=== PATIENT | female | born 1990 | race Two or more races ===

== ENCOUNTER 2017-03-22 08:50 | Emergency (ER) | payer SELFPAY ==
[2017-03-22 09:00] VITALS: BP 159/98
[2017-03-22] MEDS ORDERED: AZIT250T PO (09:28)
[2017-03-22] MEDS ORDERED: DOXY100C2 PO (09:28)
--- NOTE | 2017-03-22 09:29 | PHYS DOC ---
Adult General Chief Complaint Chief Complaint: COUGH HPI HPI Patient is a 27-year-old female in good general health who presents with a three -week history of illness, starting with upper respiratory infection, head congestion, now has developed chest congestion and a nonproductive cough. She feels somewhat short of air especially when she is working. She has muscle aches and pains in her upper back. She denies fever or chills. She is not diabetic. She has no history of asthma or COPD. She has tried naproxen with some relief. She has tried Mucinex with no relief. She is frustrated that she continues to have symptoms and she seems to be getting worse after 3 weeks of illness. Review of Systems Review of Systems Constitutional: Denies fever or chills [] HENT: As in history of present illness Respiratory: As in history of present illness : Denies Musculoskeletal: She has generalized muscular aches and pains Integument: She has some questions about facial acne Physical Exam Physical Exam Constitutional: Well developed, well nourished, no acute distress, non-toxic appearance. Alert, mentating normally, warm and dry, vital signs stable. HENT: Normocephalic, atraumatic, bilateral external ears normal, oropharynx moist, no oral exudates, nose normal. [] Eyes: conjunctiva normal, no discharge. [] Neck: Normal range of motion, no stridor. [] Cardiovascular:Heart rate regular rhythm, no murmur [] Lungs & Thorax: Bilateral breath sounds clear to auscultation with good air movement bilaterally and without wheezes. Skin: Warm, dry, no erythema, she has facial cystic acne Extremities: No tenderness, no cyanosis, no clubbing, ROM intact, no edema. [] Neurologic: Alert and oriented X 3, normal motor function, no focal deficits noted. [] EKG EKG [] Radiology/Procedures Radiology/Procedures [] Course & Med Decision Making Course & Med Decision Making Pertinent Labs and Imaging studies reviewed. (See chart for details) 27-year-old female presents with 3 weeks of illness, a cough and chest congestion that she can't shake. She is not a smoker and has no lung disease. I discussed treating her with an antibiotic. She has questions about acne on her face. We discussed that I could prescribe doxycycline for her but it won't help any longer than while she is taking the antibiotic. She elected to give it a try anyway. I also wrote for a Z-Bhavesh in case the doxycycline is too expensive, she can fill either or. [] Yovana Disclaimer Yovana Disclaimer This chart was dictated in whole or in part using Voice Recognition software in a busy, high-work load, and often noisy Emergency Department environment. It may contain unintended and wholly unrecognized errors or omissions. Departure Departure: Impression: Primary Impression: Bronchitis Additional Impression: Viral syndrome Disposition: HOME, SELF-CARE Condition: STABLE Referrals: PCP,NO (PCP) Patient Instructions: Bronchitis, [id number] Additional Instructions: Drink plenty of fluids. Get plenty of rest. If not improving in 5-7 days, see your doctor. As we discussed, I prescribed doxycycline, since this has worked before for your acne. Sometimes it's very expensive. If it's too expensive, I also prescribed Zithromax that you can fill instead. Scripts Azithromycin (ZITHROMAX) 250 Mg Tablet 1 PKG PO UD for bronchitis, #6 TAB Prov: RIVAS PHILLIP MD 03/22/17 Doxycycline Hyclate (DOXYCYCLINE HYCLATE) 100 Mg Capsule 1 CAP PO BID for bronchitis, #20 CAP Prov: RIVAS PHILLIP MD 03/22/17 Problem Qualifiers RIVAS PHILLIP MD Mar 22, 2017 09:29
== END 2017-03-22 09:35 | disposition home or self-care (01) ==
LOC: ER 08:50
DX: B34.9 Viral infection, unspecified (principal); J40 Bronchitis, not specified as acute or chronic
CPT/HCPCS: 99283

== ENCOUNTER 2017-05-16 17:26 | Emergency (ER) | payer OTHER ==
[~2017-05-16 17:26] MED LIST: AZIT250T PO; DOXY100C2 PO
[2017-05-16 17:34] VITALS: BP 140/62
[2017-05-16] MEDS ORDERED: ALPR0.25 PO (18:16)
--- NOTE | 2017-05-16 18:21 | PHYS DOC ---
General Chief Complaint: ANXIETY/PANIC ATTACK Stated Complaint: ANXIETY Time Seen by MD: 18:14 Source: patient Exam Limitations: no limitations Problems: History of Present Illness Initial Comments Patient is a 27-year-old female complaining of altered mood. 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 She states that she's had "explosive behavior" and last week and did entertain some negative thoughts however currently states that she denies any suicidal ideation. At times she says she gets very nervous and feels like her heart is racing starting to feel as if things are hopeless. She has an appointment scheduled with the [facility] for the of this month however decided she should come in [facility] to see if she could get some earlier relief. In the emergency department she is currently calm denies any current distress but is afraid once she gets home with her thoughts the symptoms will return. She denies any history of substance abuse hasn't tried any medications for mood in the past she is originally from [place]. Her vital signs are stable she doesn't take any daily medications. Timing/Duration: other Severity: severe Modifying Factors: improves with other Associated Symptoms: chest pain, shortness of breath, other Allergies: Coded Allergies: sulfamethoxazole (Verified Allergy, Unknown, gastritis, 03/22/17) trimethoprim (Verified Allergy, Unknown, gastritis, 03/22/17) Past Medical History Medical History: no pertinent history Surgical History: noncontributory Psychosocial History: anxiety Social History Smoker: non-smoker Alcohol: none Drugs: none Review of Systems Constitutional: denies chills, denies fever, denies malaise Respiratory: see HPI, denies cough, denies wheezing Cardiovascular: see HPI, denies syncope Gastrointestinal: denies diarrhea, denies nausea, denies vomiting Musculoskeletal: denies back pain, denies joint pain, denies neck pain Psychiatric/Neurological: see HPI Physical Exam General Appearance: WD/WN, no apparent distress Ear, Nose, Throat: hearing grossly normal, normal ENT inspection Neck: non-tender, supple Respiratory: normal breath sounds, no respiratory distress Cardiovascular: normal peripheral pulses, regular rate, rhythm Back: no CVA tenderness, no vertebral tenderness Extremities: non-tender, normal inspection 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 I discussed stress management techniques including counseling and exercise, I discussed prescription and [id number] medications. After thorough discussion of the addiction potential and sedation associated with alprazolam the patient would like to try it in the short-term until she can get in with the guidance center. Signs and symptoms to monitor as well as urgent indication to return to the department were discussed, the patient does agree to return if her thoughts turned dark or negative again. Her questions were answered to her satisfaction and she expressed agreement and understanding with treatment plan. As pharmacies are closed a hydroxyzine start pack was dispensed 4 symptoms overnight should they arise. Departure Time of Disposition: 18:18 Disposition: 01 HOME, SELF-CARE Diagnosis: adjustment disorder, anxiety Condition: GOOD Patient Instructions: Adjustment Disorder, Anxiety and Panic Attacks, Easy-to- Read Additional Instructions: Please review the patient education materials given by ED staff. In addition to planning to follow-up at the guidance [facility], ED staff can provide you the guidance Center's walk-in appointment hours. Try to follow-up with them for a walk-in appointment sooner than the 18 of this month. Return to the emergency department if you develop any negative thoughts as discussed. Prescription: Alprazolam 0.25 mg quantity 10 take as directed No driving or operating machinery while under the influence of this medication. Return to ED with new or changing symptoms. MOOSE GAMA DO May 16, 2017 18:20
[2017-05-16] MEDS ORDERED: STARTER PACK-hydrOXYzine 1 STARTPACK TABLET PO ONE (19:00)
== END 2017-05-16 18:37 | disposition home or self-care (01) ==
LOC: ER 17:26
DX: F43.20 Adjustment disorder, unspecified (principal); F41.9 Anxiety disorder, unspecified; Z88.1 Allergy status to other antibiotic agents
CPT/HCPCS: 99284

== ENCOUNTER 2017-05-28 21:02 | Emergency (ER) | payer OTHER ==
[~2017-05-28] VITALS: Ht 167.6 cm; Wt 72.6 kg
[~2017-05-28 21:02] MED LIST changes: +ALPR0.25 PO
[2017-05-28 21:15] VITALS: BP 147/84
[2017-05-28] MEDS ORDERED: IV NORMAL SALINE 1,000ML 1,000 ML IV SCH (21:17)
--- NOTE | 2017-05-28 21:43 | PHYS DOC ---
General Chief Complaint: FLU SYMPTOM Stated Complaint: VOMITING,DIARRHEA,FEVER X 2DAYS Time Seen by MD: 21:03 Source: patient Exam Limitations: no limitations Problems: History of Present Illness Initial Comments Patient is a 27-year-old female who comes to the ED complaining of vomiting or diarrhea. Patient states that she was diagnosed with strep throat last week and has been taking amoxicillin. Last night she developed abdominal cramping and has had multiple episodes of nonbloody emesis and loose watery stools. Her abdominal cramping is primarily epigastric, she denies any true focal abdominal pain complaints. Her appetite is intact however she is unable to keep anything down today. She's had myalgias, chills and sweats no measured fevers and is uncertain of any sick contacts with similar symptoms. No pre-arrival treatment patient is normally healthy. Timing/Duration: 24 hours Severity: severe Modifying Factors: worse with eating, worse with movement, improves with rest Associated Symptoms: diaphoresis, fever/chills, malaise, nausea/vomiting, other Allergies: Coded Allergies: sulfamethoxazole (Verified Allergy, Unknown, gastritis, 03/22/17) trimethoprim (Verified Allergy, Unknown, gastritis, 03/22/17) Past Medical History Medical History: no pertinent history Surgical History: noncontributory Social History Smoker: non-smoker Alcohol: none Drugs: none Review of Systems Constitutional: see HPI Respiratory: denies cough, denies shortness of breath, denies wheezing Cardiovascular: denies chest pain, denies palpitations, denies syncope Gastrointestinal: see HPI Genitourinary: denies dysuria, denies frequency, denies hematuria Musculoskeletal: see HPI, denies back pain, denies joint swelling, denies neck pain Hematologic/Lymphatic: denies blood clots, denies easy bleeding, denies easy bruising Physical Exam General Appearance: mild distress (nauseous no active retching or vomiting.) Eyes: bilateral eye normal inspection, bilateral eye PERRL, bilateral eye EOMI Ear, Nose, Throat: hearing grossly normal, normal ENT inspection, normal pharynx (dry mucous membranes) Neck: non-tender, supple Respiratory: normal breath sounds, no respiratory distress Cardiovascular: normal peripheral pulses, regular rate, rhythm Gastrointestinal: soft (nondistended, generalized abdominal muscle tenderness negative Whitlock negative McBurney, bowel sounds normal no palpable masses) Rectal: deferred Back: no CVA tenderness, no vertebral tenderness Extremities: non-tender, normal inspection 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 Labs reassuring, urinalysis with squamous epithelial contamination will await culture 2221: Patient rechecked, she is feeling much better her nausea has resolved and her color has improved. She no longer has a headache and feels more alert. She still has approximately 400 mL of fluids left run in, she wants to stay and finish her IV fluids. I discussed her departure instructions including oral hydration, diet modification, work excuse for tomorrow, prescription and over- the-counter medications. I advised her to continue taking her amoxicillin so her strep throat infection would be fully treated. Her questions were answered to her satisfaction and she expressed agreement and understanding with the treatment plan. Departure Time of Disposition: 22:22 Disposition: 01 HOME, SELF-CARE Diagnosis: gastroenteritis likely viral, pre-existing strep t Condition: IMPROVED Patient Instructions: Viral Gastroenteritis, Ungu-ex-Ekew Additional Instructions: Please review the patient education materials given by ED staff. Off work tomorrow, note given. Clear liquids tonight, advance diet slowly tomorrow as tolerated. Aggressive hydration with Gatorade and water. Continue amoxicillin, take with food. [id number] Tylenol and ibuprofen as needed. Prescription: Zofran ODT, dicyclomine Follow-up with your doctor in 3-5 days if not better. Return to the ED with new or changing symptoms. MOOSE GAMA DO May 28, 2017 21:43
[2017-05-28] MEDS ORDERED: FAMOTIDINE 20 MG/2 ML VIAL IVP ONE (21:45)
[2017-05-28] MEDS ORDERED: ONDANSETRON PF 4 MG/2 ML VIAL. IV ONE (21:45)
[2017-05-28 21:54] LABS: BASO % 0 % (0-3); EOS % 0 % (0-3); HEMATOCRIT 37.5 % (36.0-47.0); HEMOGLOBIN 12.8 g/dL (12.0-15.5); LYMPH # 0.8 x10^3/uL (1.0-4.8); LYMPH % 17 % (24-48); MEAN CORPUSCULAR HEMOGLOBIN 30 pg (25-35); MEAN CORPUSCULAR HGB CONC 34 g/dL (31-37); MEAN CORPUSCULAR VOLUME 88 fL (79-100); MONO # 0.5 x10^3/uL (0.0-1.1); MONO % 10 % (0-9); NEUT # 3.5 x10^3uL (1.8-7.7); NEUT % 72 % (31-73); PLATELET COUNT 298 x10^3/uL (140-400); RED BLOOD COUNT 4.28 x10^6/uL (3.50-5.40); RED CELL DISTRIBUTION WIDTH 13.1 % (11.5-14.5); WHITE BLOOD COUNT 4.8 x10^3/uL (4.0-11.0)
[2017-05-28 22:06] LABS: ALBUMIN 3.9 g/dL (3.4-5.0); ALBUMIN/GLOBULIN RATIO 1.1 (1.0-1.7); CALCIUM 8.9 mg/dL (8.5-10.1); CREATININE 0.7 mg/dL (0.6-1.0); GFR 101.1; POTASSIUM 3.6 mmol/L (3.5-5.1); TOTAL BILIRUBIN 0.6 mg/dL (0.2-1.0); TOTAL PROTEIN 7.6 g/dL (6.4-8.2)
[2017-05-28 22:17] LABS: BILIRUBIN,URINE NEG (NEG); CLARITY,URINE HAZY; COLOR,URINE STRAW; GLUCOSE,URINE NEG (NEG); NITRITE,URINE NEG (NEG); UROBILINOGEN,URINE 0.2 mg/dL (0.2 mg/dL)
[2017-05-28 22:18] LABS: BACTERIA,URINE 0 /HPF (0-FEW); RBC,URINE OCC /HPF (0-2); SQUAMOUS EPITHELIAL CELL,UR MANY /LPF
[2017-05-28] MEDS ORDERED: ONDA4TAB10 PO (22:25)
[2017-05-28] MEDS ORDERED: DICY20TA3 PO (22:25)
[2017-05-28] MEDS ORDERED: ONDANSETRON 4MG ODT 4TABLET STARTPACK. PO ONE (22:30)
== END 2017-05-28 22:55 | disposition home or self-care (01) ==
LOC: ER 21:02
DX: K52.9 Noninfective gastroenteritis and colitis, unspecified (principal); J02.0 Streptococcal pharyngitis; Z88.1 Allergy status to other antibiotic agents
CPT/HCPCS: 36415; 80053; 81001; 81025; 83690; 85025; 87086; 96361; 96374; 96375; 99284; J2405; Q0162; S0028; J7030

== ENCOUNTER 2017-08-12 13:10 | Emergency (ER) | payer OTHER ==
[~2017-08-12] VITALS: Ht 167.6 cm; Wt 72.6 kg
[~2017-08-12 13:10] MED LIST changes: +DICY20TA3 PO; +ONDA4TAB10 PO
[2017-08-12] MEDS ORDERED: IV NORMAL SALINE 1,000ML 1,000 ML IV SCH (13:42)
[2017-08-12 14:04] LABS: BASO % 0 % (0-3); EOS # 0.1 x10^3/uL (0.0-0.7); EOS % 1 % (0-3); HEMATOCRIT 37.7 % (36.0-47.0); HEMOGLOBIN 12.9 g/dL (12.0-15.5); LYMPH # 0.6 x10^3/uL (1.0-4.8); LYMPH % 9 % (24-48); MEAN CORPUSCULAR HEMOGLOBIN 30 pg (25-35); MEAN CORPUSCULAR HGB CONC 34 g/dL (31-37); MEAN CORPUSCULAR VOLUME 87 fL (79-100); MONO # 0.3 x10^3/uL (0.0-1.1); MONO % 5 % (0-9); NEUT # 4.9 x10^3uL (1.8-7.7); NEUT % 84 % (31-73); PLATELET COUNT 290 x10^3/uL (140-400); RED BLOOD COUNT 4.32 x10^6/uL (3.50-5.40); RED CELL DISTRIBUTION WIDTH 14.1 % (11.5-14.5); WHITE BLOOD COUNT 5.9 x10^3/uL (4.0-11.0)
[2017-08-12 14:19] LABS: ALBUMIN 3.8 g/dL (3.4-5.0); CALCIUM 8.6 mg/dL (8.5-10.1); CREATININE 0.6 mg/dL (0.6-1.0); GFR 120.8; POTASSIUM 3.9 mmol/L (3.5-5.1); TOTAL BILIRUBIN 0.5 mg/dL (0.2-1.0); TOTAL PROTEIN 7.7 g/dL (6.4-8.2)
[2017-08-12 14:33] VITALS: BP 144/83
[2017-08-12] MEDS ORDERED: ONDA4TAB12 PO (14:41)
--- NOTE | 2017-08-12 14:41 | PHYS DOC ---
Past History Past Medical History: No Pertinent History Past Surgical History: No Surgical History Alcohol Use: None Drug Use: None Adult General Chief Complaint Chief Complaint: FLU SYMPTOM HPI HPI Patient is a 27-year-old female who presents with the complaint today of nausea , diarrhea, feverish feeling, pain in the joints. Patient states that last week she had a cold in her nose. She was congested. She went to her doctor and tests were negative for influenza and strep. They prescribed a decongestant for her. She was getting better from those symptoms. Still has a little bit when 2 days ago she developed her current complaints of body aches, feverish, she has had some nausea and then today had diarrhea. 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 The patient has a 5-year-old son at home who has also had diarrhea. Patient is in good general health. She denies .\ Patient has had an appendectomy Review of Systems Review of Systems Constitutional: She has felt feverish and has had generalized body aches HENT: She had nasal congestion last week GI: She has had generalized abdominal aching and nausea and one episode of diarrhea. : Denies Current Medications Current Medications Current Medications Medications (Trade) Dose Ordered Sig/Rossana Start Time Stop Time Status Last Admin Dose Admin Sodium Chloride 1,000 ml @ 1,000 mls/hr Q1H 08/12/17 13:42 08/12/17 14:41 08/12/17 13:42 1,000 MLS/HR Allergies Allergies Allergies Coded Allergies Type Severity Reaction Last Updated Verified sulfamethoxazole Allergy Unknown gastritis 03/22/17 Yes trimethoprim Allergy Unknown gastritis 03/22/17 Yes Physical Exam Physical Exam Constitutional: Well developed, well nourished, no acute distress, non-toxic appearance. Alert, warm and dry, mentating normally. Mildly tachycardic at about 102. HENT: Normocephalic, atraumatic, bilateral external ears normal, nose normal. [ ] Eyes: conjunctiva normal, no discharge. [] Neck: Normal range of motion, no stridor. [] Cardiovascular:Heart rate regular rhythm, no murmur [] Lungs & Thorax: Bilateral breath sounds clear to auscultation [] Abdomen: Bowel sounds normal, soft, mild generalized tenderness, no localized tenderness, no rebound or guarding, no masses, no pulsatile masses. [] Skin: Warm, dry, no erythema, no rash. [] Extremities: No tenderness, no cyanosis, no clubbing, ROM intact, no edema. [] Neurologic: Alert and oriented X 3, normal motor function, no focal deficits noted. [] Current Patient Data Vital Signs Vital Signs Date Time Temp Pulse Resp B/P (MAP) Pulse Ox O2 Delivery O2 Flow Rate FiO2 08/12/17 14:33 109 18 144/83 (103) 100 Room Air 08/12/17 13:27 98.3 Lab Results Laboratory Tests Test 08/12/17 13:51 08/12/17 13:54 White Blood Count 5.9 x10^3/uL (4.0-11.0) Red Blood Count 4.32 x10^6/uL (3.50-5.40) Hemoglobin 12.9 g/dL (12.0-15.5) Hematocrit 37.7 % (36.0-47.0) Mean Corpuscular Volume 87 fL (79-100) Mean Corpuscular Hemoglobin 30 pg (25-35) Mean Corpuscular Hemoglobin Concent 34 g/dL (31-37) Red Cell Distribution Width 14.1 % (11.5-14.5) Platelet Count 290 x10^3/uL (140-400) Neutrophils (%) (Auto) 84 % (31-73) H Lymphocytes (%) (Auto) 9 % (24-48) L Monocytes (%) (Auto) 5 % (0-9) Eosinophils (%) (Auto) 1 % (0-3) Basophils (%) (Auto) 0 % (0-3) Neutrophils # (Auto) 4.9 x10^3uL (1.8-7.7) Lymphocytes # (Auto) 0.6 x10^3/uL (1.0-4.8) L Monocytes # (Auto) 0.3 x10^3/uL (0.0-1.1) Eosinophils # (Auto) 0.1 x10^3/uL (0.0-0.7) Basophils # (Auto) 0.0 x10^3/uL (0.0-0.2) Sodium Level 136 mmol/L (136-145) Potassium Level 3.9 mmol/L (3.5-5.1) Chloride Level 100 mmol/L (98-107) Carbon Dioxide Level 27 mmol/L (21-32) Anion Gap 9 (6-14) Blood Urea Nitrogen 8 mg/dL (7-20) Creatinine 0.6 mg/dL (0.6-1.0) Estimated GFR (Cockcroft-Gault) 120.8 BUN/Creatinine Ratio 13 (6-20) Glucose Level 89 mg/dL (70-99) Calcium Level 8.6 mg/dL (8.5-10.1) Total Bilirubin 0.5 mg/dL (0.2-1.0) Aspartate Amino Transferase (AST) 23 U/L (15-37) Alanine Aminotransferase (ALT) 32 U/L (14-59) Alkaline Phosphatase 82 U/L (46-116) Total Protein 7.7 g/dL (6.4-8.2) Albumin 3.8 g/dL (3.4-5.0) Albumin/Globulin Ratio 1.0 (1.0-1.7) EKG EKG [] Radiology/Procedures Radiology/Procedures [] Course & Med Decision Making Course & Med Decision Making Pertinent Labs and Imaging studies reviewed. (See chart for details) 27-year-old female presents with about a week of the viral syndrome, today has some nausea, diarrhea, generalized joint aches and feverish. She may have the same viral syndrome or a different viral syndrome. A bit tachycardic. I offered her to go home and rest and drink fluids are to have a liter of fluids here and she chose to have a liter here. She was given a liter of fluids, labs are normal , the patient is stable for discharge. See instructions for plan. [] Dragon Disclaimer Dragon Disclaimer This electronic medical record was generated, in whole or in part, using a voice recognition dictation system. Departure Departure: Impression: Primary Impression: Diarrhea Additional Impression: Viral syndrome Disposition: 01 HOME, SELF-CARE Condition: IMPROVED Referrals: ALEXANDRU REAGAN PA-C (PCP) Patient Instructions: Diarrhea, Rzew-im-[id number], Nausea and Vomiting, Wuis-fi-[id number] Additional Instructions: Stay home and rest until you feel better. Don't go to work while you feel feverish or have nausea or diarrhea. Good hand washing with soap and water, you are probably contagious. Scripts Ondansetron (ONDANSETRON ODT) 4 Mg Tab.rapdis 1 TAB PO PRN Q6-8HRS for NAUSEA, #10 TAB Prov: RIVAS PHILLIP MD 08/12/17 Problem Qualifiers RIVAS PHILLIP MD Aug 12, 2017 14:41
== END 2017-08-12 14:54 | disposition home or self-care (01) ==
LOC: ER 13:10
DX: B34.9 Viral infection, unspecified (principal); R19.7 Diarrhea, unspecified; Z88.2 Allergy status to sulfonamides; Z88.1 Allergy status to other antibiotic agents
CPT/HCPCS: 36415; 80053; 85025; 96360; 99284-25; J7030

== ENCOUNTER → 2017-08-18 | Outpatient (CLI) | payer OTHER ==
[2017-08-12 14:33] VITALS: BP 144/83
[~2017-08-18] MED LIST changes: +ONDA4TAB12 PO
[2017-08-18 18:13] LABS: BASO % 1 % (0-3); EOS # 0.2 x10^3/uL (0.0-0.7); EOS % 3 % (0-3); HEMATOCRIT 40.4 % (36.0-47.0); HEMOGLOBIN 13.5 g/dL (12.0-15.5); LYMPH # 2.4 x10^3/uL (1.0-4.8); LYMPH % 27 % (24-48); MEAN CORPUSCULAR HEMOGLOBIN 29 pg (25-35); MEAN CORPUSCULAR HGB CONC 33 g/dL (31-37); MEAN CORPUSCULAR VOLUME 88 fL (79-100); MONO # 0.5 x10^3/uL (0.0-1.1); MONO % 6 % (0-9); NEUT # 5.8 x10^3uL (1.8-7.7); NEUT % 64 % (31-73); PLATELET COUNT 362 x10^3/uL (140-400); RED CELL DISTRIBUTION WIDTH 13.9 % (11.5-14.5)
[2017-08-18 18:22] LABS: ALBUMIN 4.4 g/dL (3.4-5.0); ALBUMIN/GLOBULIN RATIO 0.9 (1.0-1.7); CALCIUM 9.6 mg/dL (8.5-10.1); CREATININE 0.7 mg/dL (0.6-1.0); GFR 101.1; POTASSIUM 3.7 mmol/L (3.5-5.1); TOTAL BILIRUBIN 0.2 mg/dL (0.2-1.0); TOTAL PROTEIN 9.1 g/dL (6.4-8.2)
[2017-08-19 19:11] LABS: ESTRADIOL LEVEL 129.7 pg/mL (.); PROGESTERONE 8.8 ng/mL (.); TESTOSTERONE TOTAL 20 ng/dL (8-48)
[2017-08-20 06:12] LABS: HEMOGLOBIN A1C 4.8 % (4.8-5.6)
== END | disposition home or self-care (01) ==
LOC: LAB 17:23
PROVIDERS: ATTEND General Practice
DX: E34.9 Endocrine disorder, unspecified (principal); R63.5 Abnormal weight gain; R63.1 Polydipsia
CPT/HCPCS: 36415; 80053; 82306; 82670; 82679; 83036; 84144; 84403; 85025

== ENCOUNTER 2017-12-03 13:47 | Emergency (ER) | payer OTHER ==
[~2017-12-03] VITALS: Ht 160 cm; Wt 72.6 kg
[2017-12-03 14:06] VITALS: BP 160/62
--- NOTE | 2017-12-03 14:35 | PHYS DOC ---
Past History Past Medical History: Other Past Surgical History: No Surgical History Alcohol Use: None Drug Use: None Adult General Chief Complaint Chief Complaint: CHEMICAL EXPOSURE HPI HPI 27-year-old female presents with left eye chemical exposure. 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 She was exposed to a splash of "[employer]" diluted in hot water. She tells me the chemical is an abrasive used to clean metal containers. The exposure was an accidental splash. She immediately irrigated the left eye. She does not wear contacts. She had erythema and irritation of the eye so they sent her to the ED. She denies any other chemical exposures or complaints. Review of Systems Review of Systems Constitutional: Denies fever or chills [] Eyes: Left eye and periorbital skin irritation from chemical exposure[] HENT: Denies nasal congestion or sore throat [] Respiratory: Denies cough or shortness of breath [] Cardiovascular: No additional information not addressed in HPI [] GI: Denies abdominal pain, nausea, vomiting, bloody stools or diarrhea [] : Denies dysuria or hematuria [] Musculoskeletal: Denies back pain or joint pain [] Integument: Denies rash or skin lesions [] Neurologic: Denies headache, focal weakness or sensory changes [] Endocrine: Denies polyuria or polydipsia [] All other systems were reviewed and found to be within normal limits, except as documented in this note. Allergies Allergies Allergies Coded Allergies Type Severity Reaction Last Updated Verified sulfamethoxazole Allergy Unknown gastritis 03/22/17 Yes trimethoprim Allergy Unknown gastritis 03/22/17 Yes Physical Exam Physical Exam Constitutional: Well developed, well nourished, no acute distress, non-toxic appearance. [] HENT: Normocephalic, atraumatic, bilateral external ears normal, oropharynx moist, no oral exudates, nose normal. [] Eyes: PERRLA, EOMI, conjunctiva normal, no discharge. No surrounding erythema at this time. [] Neck: Normal range of motion, no tenderness, supple, no stridor. [] Cardiovascular:Heart rate regular rhythm, no murmur [] Lungs & Thorax: Bilateral breath sounds clear to auscultation [] Abdomen: Bowel sounds normal, soft, no tenderness, no masses, no pulsatile masses. [] Skin: Warm, dry, no erythema, no rash. [] Back: No tenderness, no CVA tenderness. [] Extremities: No tenderness, no cyanosis, no clubbing, ROM intact, no edema. [] Neurologic: Alert and oriented X 3, normal motor function, normal sensory function, no focal deficits noted. [] Psychologic: Affect normal, judgement normal, mood normal. [] Current Patient Data Vital Signs Vital Signs Date Time Temp Pulse Resp B/P (MAP) Pulse Ox O2 Delivery O2 Flow Rate FiO2 12/03/17 14:06 98.9 98 98 Room Air EKG EKG [] Radiology/Procedures Radiology/Procedures [] Course & Med Decision Making Course & Med Decision Making Pertinent Labs and Imaging studies reviewed. (See chart for details) The patient did continuous irrigation as recommended by the material data sheet. At this time, she states it is feeling much better. She showed me a picture of the initial irritation. Her skin is no longer erythematous or swollen. Her vision is normal. She states feeling as though she can go back to work. I have advised that if she has return of irritation or any new symptoms she should come back to the ED. I believe she is stable to return to work. [] Dragon Disclaimer Dragon Disclaimer This electronic medical record was generated, in whole or in part, using a voice recognition dictation system. Departure Departure: Referrals: MARICARMEN LOWERY DO (PCP) JORDAN ALARCON DO Dec 03, 2017 14:35
== END 2017-12-03 14:40 | disposition home or self-care (01) ==
LOC: ER 13:47
DX: Z77.098 Contact with and (suspected) exposure to other hazardous, chiefly nonmedicinal, chemicals (principal); H57.8 Other specified disorders of eye and adnexa; Z88.1 Allergy status to other antibiotic agents
CPT/HCPCS: 99282

== ENCOUNTER 2018-07-22 08:45 | Emergency (ER) | payer OTHER ==
[~2018-07-22] VITALS: Ht 160 cm; Wt 76.7 kg
[2018-07-22] MEDS ORDERED: IV NORMAL SALINE 1,000ML 1,000 ML IV ONE (09:15)
[2018-07-22 09:19] LABS: BASO # 0.1 x10^3/uL (0.0-0.2); BASO % 1 % (0-3); EOS # 0.1 x10^3/uL (0.0-0.7); EOS % 2 % (0-3); HEMATOCRIT 30.9 % (36.0-47.0); LYMPH # 1.4 x10^3/uL (1.0-4.8); LYMPH % 28 % (24-48); MEAN CORPUSCULAR HEMOGLOBIN 26 pg (25-35); MEAN CORPUSCULAR HGB CONC 33 g/dL (31-37); MEAN CORPUSCULAR VOLUME 80 fL (79-100); MONO # 0.3 x10^3/uL (0.0-1.1); MONO % 7 % (0-9); NEUT # 3.3 x10^3uL (1.8-7.7); NEUT % 63 % (31-73); PLATELET COUNT 362 x10^3/uL (140-400); RED BLOOD COUNT 3.86 x10^6/uL (3.50-5.40); RED CELL DISTRIBUTION WIDTH 14.8 % (11.5-14.5); WHITE BLOOD COUNT 5.2 x10^3/uL (4.0-11.0)
[2018-07-22 09:32] LABS: ALBUMIN 3.6 g/dL (3.4-5.0); ALBUMIN/GLOBULIN RATIO 0.9 (1.0-1.7); CALCIUM 8.6 mg/dL (8.5-10.1); CREATININE 0.6 mg/dL (0.6-1.0); GFR 119.9; POTASSIUM 3.8 mmol/L (3.5-5.1); TOTAL BILIRUBIN 0.3 mg/dL (0.2-1.0); TOTAL PROTEIN 7.4 g/dL (6.4-8.2)
[2018-07-22 10:27] LABS: BILIRUBIN,URINE NEG (NEG); CLARITY,URINE HAZY; COLOR,URINE PINK; GLUCOSE,URINE NEG (NEG)
[2018-07-22 10:28] LABS: BACTERIA,URINE 0 /HPF (0-FEW); NITRITE,URINE NEG (NEG); SQUAMOUS EPITHELIAL CELL,UR OCC /LPF; UROBILINOGEN,URINE 0.2 mg/dL (0.2 mg/dL); WBC,URINE OCC /HPF (0-4)
--- NOTE | 2018-07-22 11:09 | PHYS DOC ---
Past History Past Medical History: Other Past Surgical History: Other Alcohol Use: None Drug Use: None Adult General Chief Complaint Chief Complaint: VAGINAL BLEEDING HPI HPI 28-year-old female presents with vaginal bleeding. The patient has had intermenstrual bleeding for the last 2-1/2 months. She states she has bleeding nearly every day in addition to her regular menses. She presents today because she has had 1 week of heavier than normal bleeding. She usually only has 2-3 days at most. She has been feeling a bit lightheaded and dizzy today and is concerned about anemia. She has been prescribed therapy which she is supposed to start today. She started to slate picker this prescription. She denies . Does not believe she has an STD and would like to verify that. 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 She denies fever or chills. Review of Systems Review of Systems Constitutional: Denies fever or chills [] Eyes: Denies change in visual acuity, redness, or eye pain [] HENT: Denies nasal congestion or sore throat [] Respiratory: Denies cough or shortness of breath [] Cardiovascular: No additional information not addressed in HPI [] GI: Denies abdominal pain, nausea, vomiting, bloody stools or diarrhea [] : Vaginal bleeding[] Musculoskeletal: Denies back pain or joint pain [] Integument: Denies rash or skin lesions [] Neurologic: Denies headache, focal weakness or sensory changes [] Endocrine: Denies polyuria or polydipsia [] All other systems were reviewed and found to be within normal limits, except as documented in this note. Current Medications Current Medications Current Medications Medications (Trade) Dose Ordered Sig/Rossana Start Time Stop Time Status Last Admin Dose Admin Sodium Chloride 1,000 ml @ 1,000 mls/hr 1X ONCE 07/22/18 09:15 07/22/18 10:14 DC 07/22/18 09:23 1,000 MLS/HR Allergies Allergies Allergies Coded Allergies Type Severity Reaction Last Updated Verified No Known Drug Allergies 07/22/18 No Physical Exam Physical Exam Constitutional: Well developed, well nourished, no acute distress, non-toxic appearance. [] HENT: Normocephalic, atraumatic, bilateral external ears normal, oropharynx moist, no oral exudates, nose normal. [] Eyes: PERRLA, EOMI, conjunctiva normal, no discharge. [] Neck: Normal range of motion, no tenderness, supple, no stridor. [] Cardiovascular:Heart rate regular rhythm, no murmur [] Lungs & Thorax: Bilateral breath sounds clear to auscultation [] Abdomen: Bowel sounds normal, soft, moderate suprapubic tenderness[] Skin: Warm, dry, no erythema, no rash. [] Back: No tenderness, no CVA tenderness. [] Extremities: No tenderness, no cyanosis, no clubbing, ROM intact, no edema. [] Neurologic: Alert and oriented X 3, normal motor function, normal sensory function, no focal deficits noted. [] Psychologic: Affect normal, judgement normal, mood normal. : Normal external exam, she pubic hair, internal exam with blood pooling, appears to be coming from the cervix.[] Current Patient Data Vital Signs Vital Signs Date Time Temp Pulse Resp B/P (MAP) Pulse Ox O2 Delivery O2 Flow Rate FiO2 07/22/18 08:47 98.4 98 16 100 Room Air Lab Results Laboratory Tests Test 07/22/18 09:06 07/22/18 10:01 White Blood Count 5.2 x10^3/uL (4.0-11.0) Red Blood Count 3.86 x10^6/uL (3.50-5.40) Hemoglobin 10.0 g/dL (12.0-15.5) L Hematocrit 30.9 % (36.0-47.0) L Mean Corpuscular Volume 80 fL (79-100) Mean Corpuscular Hemoglobin 26 pg (25-35) Mean Corpuscular Hemoglobin Concent 33 g/dL (31-37) Red Cell Distribution Width 14.8 % (11.5-14.5) H Platelet Count 362 x10^3/uL (140-400) Neutrophils (%) (Auto) 63 % (31-73) Lymphocytes (%) (Auto) 28 % (24-48) Monocytes (%) (Auto) 7 % (0-9) Eosinophils (%) (Auto) 2 % (0-3) Basophils (%) (Auto) 1 % (0-3) Neutrophils # (Auto) 3.3 x10^3uL (1.8-7.7) Lymphocytes # (Auto) 1.4 x10^3/uL (1.0-4.8) Monocytes # (Auto) 0.3 x10^3/uL (0.0-1.1) Eosinophils # (Auto) 0.1 x10^3/uL (0.0-0.7) Basophils # (Auto) 0.1 x10^3/uL (0.0-0.2) Sodium Level 139 mmol/L (136-145) Potassium Level 3.8 mmol/L (3.5-5.1) Chloride Level 105 mmol/L (98-107) Carbon Dioxide Level 28 mmol/L (21-32) Anion Gap 6 (6-14) Blood Urea Nitrogen 7 mg/dL (7-20) Creatinine 0.6 mg/dL (0.6-1.0) Estimated GFR (Cockcroft-Gault) 119.9 BUN/Creatinine Ratio 12 (6-20) Glucose Level 92 mg/dL (70-99) Calcium Level 8.6 mg/dL (8.5-10.1) Total Bilirubin 0.3 mg/dL (0.2-1.0) Aspartate Amino Transferase (AST) 24 U/L (15-37) Alanine Aminotransferase (ALT) 35 U/L (14-59) Alkaline Phosphatase 94 U/L (46-116) Total Protein 7.4 g/dL (6.4-8.2) Albumin 3.6 g/dL (3.4-5.0) Albumin/Globulin Ratio 0.9 (1.0-1.7) L Urine Collection Type Unknown Urine Color Dubois Urine Clarity Hazy Urine pH 7.5 Urine Specific [place] 1.010 Urine Protein Neg (NEG-TRACE) Urine Glucose (UA) Neg mg/dL (NEG) Urine Ketones (Stick) Neg mg/dL (NEG) Urine Blood Large (NEG) Urine Nitrite Neg (NEG) Urine Bilirubin Neg (NEG) Urine Urobilinogen Dipstick 0.2 mg/dL (0.2 mg/dL) Urine Leukocyte Esterase Small (NEG) Urine RBC 6-10 /HPF (0-2) Urine WBC Occ /HPF (0-4) Urine Squamous Epithelial Cells Occ /LPF Urine Bacteria 0 /HPF (0-FEW) EKG EKG [] Radiology/Procedures Radiology/Procedures [] Impressions: Examination: US PELVIS W/TV History: Abnormal uterine bleeding, abdominal pain Comparison/Correlation: None Findings: Transabdominal and transvaginal pelvic ultrasound exam was performed. Small amount pelvic free fluid is present. Uterus measures 6.7 cm x 4.19 x 4.2 cm. Myometrium is unremarkable. Endometrial thickness of up to 0.7 cm is present vascularity of the endometrium is noted on color Doppler imaging. No intrauterine gestational sac or other intrauterine contents. Right adnexa measures 2.5 cm x 1.1 cm x 2.5 cm. Left adnexa measures 2.9 cm x 3.8 cm x 1.8 cm. No suspicious adnexal mass. Normal ovarian flow bilaterally. Impression: Pelvic free fluid is present and presumably physiologic. Vascularity of the endometrium is present and of indeterminate significance. No suspicious lesion identified. Electronically signed by: Nicholas Jon MD (07/22/2018 11:04 AM) [id number] DICTATED AND SIGNED BY: NICHOLAS JON MD DATE: 07/22/18 1102 CC: MARICARMEN LOWERY DO; JORDAN ALARCON DO Course & Med Decision Making Course & Med Decision Making Pertinent Labs and Imaging studies reviewed. (See chart for details) The patient is anemic with a hemoglobin of 10, but does not meet transfusion criteria. Rest for labs are unremarkable. Her urinalysis is negative for infection. The patient's ultrasound shows small amount of fluid in the pelvis thought to be physiologic. It also shows vascularity of the endometrium of unknown significance. STD testing and wet prep are pending. Her wet prep is unremarkable. Her GC chlamydia will take days to get results. I have advised the patient fill her hormone prescription and take it as directed. 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 She is stable for discharge at this time. [] Dragon Disclaimer Dragon Disclaimer This electronic medical record was generated, in whole or in part, using a voice recognition dictation system. Departure Departure: Impression: Primary Impression: Vaginal bleeding between periods Additional Impression: Anemia Disposition: 01 HOME, SELF-CARE Condition: STABLE Referrals: MARICARMEN LOWERY DO (PCP) Problem Qualifiers Additional Impression: Anemia Other causes of anemia: acute posthemorrhagic JORDAN ALARCON DO Jul 22, 2018 11:09
[2018-07-22 11:15] VITALS: BP 108/64
[2018-07-23 20:07] LABS: CHLAMYDIA PROBE Negative (Negative)
== END 2018-07-22 11:35 | disposition home or self-care (01) ==
LOC: ER 08:45
DX: N93.8 Other specified abnormal uterine and vaginal bleeding (principal); D64.9 Anemia, unspecified; R42 Dizziness and giddiness
CPT/HCPCS: 36415; 76830; 76856; 80053; 81001; 81025; 85025; 87086; 87491; 87591; 96360; 96361; 99284; Q0111; J7030

== ENCOUNTER → 2018-08-27 | Outpatient (CLI) | payer OTHER ==
[2018-08-27 12:59] LABS: BASO # 0.1 x10^3/uL (0.0-0.2); BASO % 1 % (0-3); EOS # 0.1 x10^3/uL (0.0-0.7); EOS % 1 % (0-3); HEMATOCRIT 28.7 % (36.0-47.0); HEMOGLOBIN 9.1 g/dL (12.0-15.5); LYMPH # 1.6 x10^3/uL (1.0-4.8); LYMPH % 25 % (24-48); MEAN CORPUSCULAR HEMOGLOBIN 24 pg (25-35); MEAN CORPUSCULAR HGB CONC 32 g/dL (31-37); MEAN CORPUSCULAR VOLUME 76 fL (79-100); MONO # 0.7 x10^3/uL (0.0-1.1); MONO % 11 % (0-9); NEUT # 4.1 x10^3uL (1.8-7.7); NEUT % 63 % (31-73); PLATELET COUNT 482 x10^3/uL (140-400); RED CELL DISTRIBUTION WIDTH 15.9 % (11.5-14.5); WHITE BLOOD COUNT 6.5 x10^3/uL (4.0-11.0)
== END | disposition home or self-care (01) ==
LOC: PMG 12:04
PROVIDERS: ATTEND Registered Nurse
DX: D64.9 Anemia, unspecified (principal)
CPT/HCPCS: 36415; 82607; 82728; 82746; 83540; 83550; 85025

== ENCOUNTER 2018-10-01 04:10 | Emergency (ER) | payer OTHER ==
[~2018-10-01] VITALS: Ht 160 cm; Wt 79.4 kg
[2018-10-01 04:10] VITALS: BP 146/103
--- NOTE | 2018-10-01 04:22 | ED.ADGEN ---
Past History Past Medical History: Other Past Surgical History: Other Alcohol Use: None Drug Use: None Adult General Chief Complaint Chief Complaint ".. I got this flu like stuff, cold, congestion, runny nose... cough.. about a week ago.. I think I got it from my son... but my work schedule .. it is difficult for me to see my doctor.. so I decided to come tonight.. because I was so congested and could not sleep.. I did get the flu shot this year.. but .. my son did not.... but I figured... we could both be seen tonight.. " HPI HPI Patient is a 28 year old female who presents with above hx and congestion. Patient states she had a upper respiratory infection like symptoms for the past week. Patient unable to get in to see her primary care physician because work schedule. No recent travel. No specific ill contacts. No history immuno suppression. Pt. did receive flu vaccination this season. Normally follows with Dr. Walsh Review of Systems Review of Systems Constitutional: Subjective fever Eyes: Denies change in visual acuity, redness, or eye pain [] HENT: Complains of nasal congestion and sore throat [] Respiratory: Denies cough or shortness of breath [] Cardiovascular: No additional information not addressed in HPI [] GI: Denies abdominal pain, nausea, vomiting, bloody stools or diarrhea [] : Denies dysuria or hematuria [] Musculoskeletal: Denies back pain or joint pain [] Integument: Denies rash or skin lesions [] Neurologic: Denies headache, focal weakness or sensory changes [] Endocrine: Denies polyuria or polydipsia [] All other systems were reviewed and found to be within normal limits, except as documented in this note. Family History Family History Noncontributory other than son Has Same Type of Presentation for the past Week Current Medications Current Medications Current Medications Medications (Trade) Dose Ordered Sig/Rossana Start Time Stop Time Status Last Admin Dose Admin Ibuprofen (Motrin) 600 mg 1X ONCE 10/01/18 05:00 10/01/18 05:02 DC 10/01/18 05:00 600 MG Prednisone (Prednisone) 60 mg 1X ONCE 10/01/18 05:00 10/01/18 05:02 DC 10/01/18 05:00 60 MG He nursing for home meds Allergies Allergies Allergies Coded Allergies Type Severity Reaction Last Updated Verified No Known Drug Allergies 07/22/18 No Physical Exam Physical Exam Constitutional: Well developed, well nourished, no acute distress, non-toxic appearance. [] HENT: Normocephalic, atraumatic, bilateral external ears normal, oropharynx moist, mild injection of pharynx with postnasal drainage, no oral exudates, nose swollen turbinates and clear rhinorrhea Eyes: PERRLA, EOMI, conjunctiva normal, no discharge. [] Glasses Neck: Normal range of motion, no tenderness, supple, no stridor. [] Cardiovascular:Heart rate regular rhythm, no murmur [] Lungs & Thorax: Bilateral breath sounds clear to auscultation [] Abdomen: Bowel sounds normal, soft, no tenderness, no masses, no pulsatile ma sses. [] Skin: Warm, dry, no erythema, no rash. [] Back: No tenderness, no CVA tenderness. [] Extremities: No tenderness, no cyanosis, no clubbing, ROM intact, no edema. [] Neurologic: Alert and oriented X 3, normal motor function, normal sensory function, no focal deficits noted. [] Psychologic: Affect anxious, judgement normal, mood normal. [] Current Patient Data Vital Signs Vital Signs Date Time Temp Pulse Resp B/P (MAP) Pulse Ox O2 Delivery O2 Flow Rate FiO2 10/01/18 04:10 98.7 92 18 100 Room Air Lab Results Laboratory Tests Test 10/01/18 04:40 Influenza Type A (Rapid) Negative (NEGATIVE) Influenza Type B (Rapid) Negative (NEGATIVE) Group A Streptococcus Rapid Negative (NEGATIVE) EKG EKG [] Radiology/Procedures Radiology/Procedures [] Course & Med Decision Making Course & Med Decision Making Pertinent Labs and Imaging studies reviewed. (See chart for details). Patient push fluids. Tylenol or ibuprofen for discomfort. Consider using Benadryl 25-50 mg 4 times a day for marked congestion and drainage. Could also use [id number] Claritin. Patient use [id number] Flonase at night. Also occasional use of Afrin nasal spray at night may be helpful for Nasal congestion. Follow-up primary care. Return if any concerns. Note patient reports symptoms improved considerably by time of discharge [] Final Impression Final Impression 1. Upper respiratory infection[]-viral Dragon Disclaimer Dragon Disclaimer This electronic medical record was generated, in whole or in part, using a voice recognition dictation system. Discharge Summary Visit Information Final Diagnosis Problems Medical Problems: (1) Upper respiratory infection Status: Acute Brief Hospital Course Allergies Allergies Coded Allergies Type Severity Reaction Last Updated Verified No Known Drug Allergies 07/22/18 No Vital Signs Vital Signs Date Time Temp Pulse Resp B/P (MAP) Pulse Ox O2 Delivery O2 Flow Rate FiO2 10/01/18 04:10 98.7 92 18 100 Room Air Lab Results Laboratory Tests Test 10/01/18 04:40 Influenza Type A (Rapid) Negative (NEGATIVE) Influenza Type B (Rapid) Negative (NEGATIVE) Group A Streptococcus Rapid Negative (NEGATIVE) Brief Hospital Course Ms. Winchester is a 28 old female who presented with nasal congestion complaints of Upper respiratory infection. [place] to be a viral syndrome. Discharge Information Condition at Discharge: Improved, Stable Disposition/Orders: D/C to Home Dischare Medications Current Medications Ibuprofen (Motrin) 600 mg 1X ONCE PO Last administered on 10/01/18at 05:00; Admin Dose 600 MG; Start 10/01/18 at 05:00; Stop 10/01/18 at 05:02; Status DC Prednisone (Prednisone) 60 mg 1X ONCE PO Last administered on 10/01/18at 05:00; Admin Dose 60 MG; Start 10/01/18 at 05:00; Stop 10/01/18 at 05:02; Status DC Active Scripts Active Ondansetron Odt (Ondansetron) 4 Mg Tab.rapdis 1 Tab PO PRN Q6-8HRS Dicyclomine Hcl 20 Mg Tablet 1 Tab PO QID Zofran Odt (Ondansetron) 4 Mg Tab.rapdis 4 Mg PO Q6HRS Xanax (Alprazolam) 0.25 Mg Tablet 1 Tab PO DAILY Zithromax (Azithromycin) 250 Mg Tablet 1 Pkg PO UD Doxycycline Hyclate 100 Mg Capsule 1 Cap PO BID Dragon Disclaimer This chart was dictated in whole or in part using Voice Recognition software in a busy, high-work load, and often noisy Emergency Department environment. It may contain unintended and wholly unrecognized errors or omissions. LUIS ENRIQUE ARIAS MD Oct 01, 2018 04:22
[2018-10-01] MEDS ORDERED: predniSONE 20 MG TABLET PO ONE (05:00)
[2018-10-01] MEDS ORDERED: IBUPROFEN 600 MG TABLET. PO ONE (05:00)
[2018-10-01 06:18] LABS: INFLUENZA A PATIENT NEGATIVE (NEGATIVE); INFLUENZA B PATIENT NEGATIVE (NEGATIVE)
== END 2018-10-01 06:45 | disposition home or self-care (01) ==
LOC: ER 04:15
DX: J06.9 Acute upper respiratory infection, unspecified (principal); B97.89 Other viral agents as the cause of diseases classified elsewhere
CPT/HCPCS: 87070; 87804; 87880; 99284; J7512

== ENCOUNTER → 2019-11-14 | Outpatient (CLI) | payer OTHER ==
--- NOTE | 2019-11-14 17:06 | RAD ---
Thyroid ultrasound 11/14/2019 CLINICAL HISTORY: Enlarged thyroid gland. TECHNIQUE: A real-time ultrasound examination of the thyroid gland was performed. Multiple images were obtained. FINDINGS: The thyroid gland is normal in size and echogenicity. The right lobe of thyroid gland measures 5.3 x 1.5 x 1.2 cm in longitudinal, transverse, and AP dimensions. The left lobe of thyroid gland measures 5.0 x 1.4 x 1.0 cm in size. The isthmus measures 2 mm in thickness. No focal abnormality of the thyroid gland is seen. IMPRESSION: Normal thyroid ultrasound. Electronically signed by: Oscar Rose MD (11/14/2019 5:02 PM) [id number]
== END ==
LOC: US 14:10
PROVIDERS: ATTEND Otolaryngology
DX: E04.9 Nontoxic goiter, unspecified (principal)
CPT/HCPCS: 76536